=== PATIENT | male | born 1995 | race Caucasian/White ===

== ENCOUNTER 2019-01-07 08:31 | Emergency (ER) | payer OTHER ==
[~2019-01-07] VITALS: Ht 180.3 cm; Wt 72.6 kg
[~2019-01-07 08:31] MED LIST: ALEVE220 M1 PO; ANUSOL-HC25 MG RC; IBUPROFEN IB200 MG PO
[2019-01-07] MEDS ORDERED: IBU800 MG PO (09:26)
[2019-01-07] MEDS ORDERED: CLEOCIN HCL300 MG PO (09:26)
== END 2019-01-07 09:48 | disposition home or self-care (01) ==
LOC: ED 08:31
PROC: 0C9WXZ0 Drainage of Upper Tooth, External Approach, Single (ICD-10-PCS; principal; 2019-01-07)
DX: K05.219 Aggressive periodontitis, localized, unspecified severity (principal); F17.200 Nicotine dependence, unspecified, uncomplicated; Z88.1 Allergy status to other antibiotic agents
CPT/HCPCS: 41800; 99282

== ENCOUNTER 2019-03-24 16:04 | Emergency (ER) | payer OTHER ==
[~2019-03-24] VITALS: Ht 180.3 cm; Wt 70.3 kg
[~2019-03-24 16:04] MED LIST changes: +CLEOCIN HCL300 MG PO; +IBU800 MG PO
== END 2019-03-24 17:24 | disposition home or self-care (01) ==
LOC: ED 16:04
DX: S20.211A Contusion of right front wall of thorax, initial encounter (principal); W17.89XA Other fall from one level to another, initial encounter; F17.200 Nicotine dependence, unspecified, uncomplicated; Z88.1 Allergy status to other antibiotic agents
CPT/HCPCS: 71101; 99283-25